=== PATIENT | male | born 1990 | race African-American/Black ===

== ENCOUNTER 2017-12-17 13:58 | Emergency (ER) | payer MEDICAID ==
[~2017-12-17] VITALS: Ht 190.5 cm; Wt 91.0 kg
[2017-12-17 17:15] VITALS: BP 115/80
[2017-12-17] MEDS ORDERED: KETOROLAC 60MG/2ML VIAL IM ONE (17:15)
[2017-12-17] MEDS ORDERED: PREDNISONE 20MG TABLET PO ONE (17:15)
== END 2017-12-17 19:30 | disposition home or self-care (01) ==
LOC: ER 13:58
DX: J02.9 Acute pharyngitis, unspecified (principal); R13.10 Dysphagia, unspecified
CPT/HCPCS: 87070; 87430; 96372; 99283; J1885; J7512

== ENCOUNTER 2017-12-19 19:48 | Emergency (ER) | payer MEDICAID ==
[~2017-12-19] VITALS: Ht 190.5 cm; Wt 93.0 kg
[2017-12-19] MEDS ORDERED: KETOROLAC 30MG/ML VIAL IV STA (21:54)
[2017-12-19] MEDS ORDERED: SODIUM CHLORIDE 0.9% 1000ML BAG (SEPSIS BOLUS) IV ONE (22:00)
[2017-12-19] MEDS ORDERED: CEFTRIAXONE 2 G PREMIX 50 ML IV ONE (22:00)
[2017-12-19 22:53] LABS: CLARITY URINE CLEAR (CLEAR); COLOR URINE YELLOW (YELLOW); KETONES URINE TRACE (NEGATIVE); LEUKOCYTE ESTERASE URINE NEGATIVE (NEGATIVE); NITRITE URINE NEGATIVE (NEGATIVE); OCCULT BLOOD URINE NEGATIVE (NEGATIVE); PROTEIN URINE TRACE (NEGATIVE); SPECIFIC GRAVITY URINE 1.039 (1.005-1.030)
[2017-12-19 23:05] LABS: *AMPHETAMINES SCREEN URINE NEGATIVE (NEGATIVE); *BARBITURATES SCREEN URINE NEGATIVE (NEGATIVE); *BENZODIAZEPINES SCREEN URINE NEGATIVE (NEGATIVE); *COCAINE SCREEN URINE NEGATIVE (NEGATIVE); CANNABINOID URINE SCREEN NEGATIVE (NEGATIVE); METHADONE URINE SCREEN NEGATIVE (NEGATIVE); OPIATES URINE SCREEN NEGATIVE (NEGATIVE); PHENCYCLIDINE URINE SCREEN NEGATIVE (NEGATIVE)
[2017-12-19 23:39] LABS: HEMATOCRIT. 42.6 % (42.0-52.0); HEMOGLOBIN. 13.6 g/dL (14.0-18.0); MEAN CORPUSCULAR HEMOGLOBIN 26.4 pg (28.0-32.0); MEAN CORPUSCULAR VOLUME 82.5 fL (80.0-94.0); MEAN PLATELET VOLUME 9.6 fl (7.4-10.4); PLATELET 289 x1000/uL (130-400); RED BLOOD CELL COUNT 5.16 mill/uL (4.7-6.1); RED CELL DISTRIBUTION WIDTH 13.3 % (11.6-14.6)
[2017-12-19 23:46] LABS: CHLORIDE 102 mEq/L (98-107)
[2017-12-19 23:55] LABS: ETHANOL BLOOD < 10 mg/dL
[2017-12-20 00:24] LABS: ATYPICAL LYMPHOCYTES 1; PLATELET ESTIMATE NORMAL
[2017-12-20 02:43] VITALS: BP 119/57
[2017-12-20] MEDS ORDERED: IOHEXOL-350 100 ML BOTTLE ONE (02:57)
== END 2017-12-20 03:05 | disposition home or self-care (01) ==
LOC: ER 21:06
DX: J36 Peritonsillar abscess (principal); F12.10 Cannabis abuse, uncomplicated; Z98.890 Other specified postprocedural states
CPT/HCPCS: 36415; 70491; 80053; 80305; 81003; 83605; 85025; 87040; 87086; 96365; 96366; 96375; 99285; G0482; J0696; J1885; J7030; Q9967; Z7610